=== PATIENT | female | born 1970 | race Caucasian/White ===

== ENCOUNTER 2016-12-09 09:43 | Emergency (ER) | payer BC ==
[~2016-12-09] VITALS: Ht 182.9 cm; Wt 163.3 kg
[~2016-12-09 09:43] MED LIST: ASPI81TA28 PO; DROS3TAB PO; HYG25 PO; METO25TA56 PO; SYN200 PO
[2016-12-09 09:45] VITALS: TEMP 36.9; Ht 182.9 cm; Wt 163.3 kg
[2016-12-09 10:06] VITALS: O2SAT 98
--- NOTE | 2016-12-09 10:16 | EMERGENCY ROOM VISIT NOTE ---
History Report prepared by Kristin: Aisha Briceño Under the Supervision of: Dr. Shelley Paz D.O. First contact with patient: 09:57 Chief Complaint: CHEST PAIN Stated Complaint: CHEST DISCOMFORT History of Present Illness The patient is a 46 year old female who presents to the Emergency Room with complaints of constant left sided chest discomfort beginning this morning. The patient states that she has a history of atrial fibrillation and notes that she was seen here in 2012 for a-fib and low potassium. She reports that she has a history of chest discomfort and palpitations that comes when she is getting close to her period. She notes that 3 days ago she woke up in the middle of the night from palpitations but her pulse was normal in the 70s. The patient reports that she called her balance engineer but has not heard anything back form them. She notes that today her pain was more pronounced than usual behind her nipple and is worsened with taking a deep breath. The patient complains of dizziness and worsening acid reflux recently that feels different from her current pain. She denies any breast changes, nausea, shortness of breath, and injury. The patient states that she had a mammogram recently that was normal. She notes that she is building a house and is getting less sleep than usual. She states that she is on Metoprolol, Synthroid, and control. Source of History: patient Onset: this morning Position: chest (left) Quality: other (discomfort) Timing: constant Modifying Factors (Worsening): breathing Associated Symptoms: No SOB, No nausea Note: Pt complains of dizziness and worsening acid reflux. She denies any breast changes, injury. Review of Systems See HPI for pertinent positives & negatives. A total of 10 systems reviewed and were otherwise negative. Past Medical & Surgical Medical Problems: (1) Cholecystectomy (2) Hypothyroidism Family History FH: gallbladder disease FH: lung disease FHx: cancer FHx: heart disease Hypertension Kidney disease Kidney stones Social History Smoking Status: Former Smoker Marital Status: Housing Status: lives with family Occupation Status: employed Current/Historical Medications Scheduled Chlorthalidone (Chlorthalidone), 25 MG PO DAILY Drospirenone-Ethinyl Estradiol (Ocella), 1 TAB PO DAILY Levothyroxine Sodium (Levothyroxine Sodium), 200 MCG PO DAILY Metoprolol Tartrate (Lopressor) (Lopressor), 12.5 MG PO BID Scheduled PRN Acetaminophen (Tylenol), 1,000 MG PO DAILY PRN for Pain or Fever Ibuprofen (Advil), 600 MG PO DAILY PRN for Pain Allergies Coded Allergies: Cephalexin (Unverified Allergy, Severe, hives, 12/09/16) Prednisone (Unverified Adverse Reaction, Mild, UNK, 12/09/16) Physical Exam Vital Signs Date Time Temp Pulse Resp B/P (MAP) Pulse Ox O2 Delivery O2 Flow Rate FiO2 12/09/16 15:45 76 15 127/60 96 12/09/16 14:37 67 12/09/16 14:30 64 20 139/84 94 Room Air 12/09/16 13:03 68 17 139/70 95 Room Air 12/09/16 12:06 66 18 157/94 96 Room Air 12/09/16 11:31 66 17 141/67 95 Room Air 12/09/16 10:50 66 14 146/68 95 Room Air 12/09/16 10:06 98 Room Air 12/09/16 10:03 74 12/09/16 09:45 36.9 79 16 151/87 97 Room Air Physical Exam GENERAL: alert, well appearing, well nourished, no distress, non-toxic EYE EXAM: normal conjunctiva, PERRL and EOM's grossly intact OROPHARYNX: no exudate, no erythema, lips, buccal mucosa, and tongue normal and mucous membranes are moist NECK: supple, no nuchal rigidity, no adenopathy, non-tender LUNGS: Clear to auscultation. Normal chest wall mechanics HEART: no murmurs, S1 normal and S2 normal ABDOMEN: abdomen soft, non-tender, normo-active bowel sounds, no masses, no rebound or guarding. BACK: Back is symmetrical on inspection and there is no deformity, no midline tenderness, no CVA tenderness. SKIN: no rashes and no bruising UPPER EXTREMITIES: upper extremities are grossly normal. LOWER EXTREMITIES: No pitting edema. NEURO EXAM: Normal sensorium, cranial nerves II-XII grossly intact, normal speech, no gross weakness of arms, no gross weakness of legs. Medical Decision & Procedures ER Provider Diagnostic Interpretation: Radiology results have been interpreted by the radiologist and reviewed by me. CHEST ONE VIEW PORTABLE FINDINGS: Prominence of the cardiac silhouette possibly due to portable AP technique. Lungs and pleural spaces clear. Osseous structures normal. Upper abdomen normal. IMPRESSION: 1. No acute cardiopulmonary disease. Electronically signed by: Lamin Christianson M.D. 12/09/2016 10:41 AM Dictated Date/Time: 12/09/2016 10:41 AM Laboratory Results 12/09/16 10:30 Red Blood Count 4.22, Mean Corpuscular Volume 89.3, Mean Corpuscular Hemoglobin 28.9, Mean Corpuscular Hemoglobin Concent 32.4, Mean Platelet Volume 9.0, Neutrophils (%) (Auto) 80.2, Lymphocytes (%) (Auto) 12.7, Monocytes (%) (Auto) 4.0, Eosinophils (%) (Auto) 2.3, Basophils (%) (Auto) 0.6, Neutrophils # (Auto) 6.67, Lymphocytes # (Auto) 1.06, Monocytes # (Auto) 0.33, Eosinophils # (Auto) 0.19, Basophils # (Auto) 0.05 12/09/16 10:30 Test 12/09/16 10:30 12/09/16 14:43 White Blood Count 8.32 K/uL (4.8-10.8) Red Blood Count 4.22 M/uL (4.2-5.4) Hemoglobin 12.2 g/dL (12.0-16.0) Hematocrit 37.7 % (37-47) Mean Corpuscular Volume 89.3 fL (80-100) Mean Corpuscular Hemoglobin 28.9 pg (25-34) Mean Corpuscular Hemoglobin Concent 32.4 g/dl (32-36) Platelet Count 414 K/uL (130-400) Mean Platelet Volume 9.0 fL (7.4-10.4) Neutrophils (%) (Auto) 80.2 % Lymphocytes (%) (Auto) 12.7 % Monocytes (%) (Auto) 4.0 % Eosinophils (%) (Auto) 2.3 % Basophils (%) (Auto) 0.6 % Neutrophils # (Auto) 6.67 K/uL (1.4-6.5) Lymphocytes # (Auto) 1.06 K/uL (1.2-3.4) Monocytes # (Auto) 0.33 K/uL (0.11-0.59) Eosinophils # (Auto) 0.19 K/uL (0-0.5) Basophils # (Auto) 0.05 K/uL (0-0.2) RDW Standard Deviation 44.2 fL (36.4-46.3) RDW Coefficient of Variation 13.5 % (11.5-14.5) Immature Granulocyte % (Auto) 0.2 % Immature Granulocyte # (Auto) 0.02 K/uL (0.00-0.02) Prothrombin Time 10.5 SECONDS (9.0-12.0) Prothromb Time International Ratio 1.0 (0.9-1.1) D-Dimer 420 ug/L FEU (0-500) Anion Gap 8.0 mmol/L (3-11) Est Creatinine Clear Calc Drug Dose 149.3 ml/min Estimated GFR () 100.2 Estimated GFR (Non- 86.4 BUN/Creatinine Ratio 12.0 (10-20) Calcium Level 8.8 mg/dl (8.5-10.1) Magnesium Level 2.0 mg/dl (1.8-2.4) Total Bilirubin 0.3 mg/dl (0.2-1) Aspartate Amino Transf (AST/SGOT) 18 U/L (15-37) Alanine Aminotransferase (ALT/SGPT) 22 U/L (12-78) Alkaline Phosphatase 121 U/L (45-117) Pro-B-Type Natriuretic Peptide 225 pg/ml (0-450) Total Protein 7.1 gm/dl (6.4-8.2) Albumin 3.1 gm/dl (3.4-5.0) Globulin 4.0 gm/dl (2.5-4.0) Albumin/Globulin Ratio 0.8 (0.9-2) Thyroid Stimulating Hormone (TSH) 5.300 uIu/ml (0.300-4.500) Troponin I < 0.015 ng/ml (0-0.045) Laboratory results per my review. Medications Administered Medications (Trade) Dose Ordered Sig/Joyce Route Start Time Stop Time Status Last Admin Dose Admin Ketorolac Tromethamine (Toradol Inj) 30 mg NOW STAT IV 12/09/16 11:43 12/09/16 11:44 DC 12/09/16 12:03 30 MG ECG Indication: chest pain Rate (beats per minute): 85 Rhythm: sinus rhythm Findings: 1st degree AV block, T-wave inversion (AVL and V2), no ectopy, other (normal intervals) ED Course 0957: The patient was evaluated in room C6. A complete history and physical exam was performed. 1140: I reevaluated and updated the patient. 1143: Toradol Inj 30mg IV. 1523: Upon reevaluation, the patient is feeling better. I discussed the findings and the treatment plan with the patient. She verbalizes agreement and understanding. The patient was discharged home. Medical Decision Differential diagnosis: Etiologies such as cardiac ischemia, aortic dissection, pulmonary embolism, pneumonia, pneumothorax, musculoskeletal, infections, pericarditis, myocarditis , esophageal rupture, gastrointestinal, as well as others were entertained. HEART score 2 Pt well appearing here. Pain seems to occur frequently around her cycle, however today slightly worse. Different from prior GERD. Pt intermittently gets palpitations, no a.fib noted here. Trop neg x 2. Second trop >8 hrs from onset of pain. Doubt PE, doubt vascular etiology, no evidence of infectious etiology. VS stable here. Pain improved here. Advised close f/u with pcp and cards, discussed sx to watch/return for, she verbalized understanding and was agreeable with plan. Medication Reconcilliation Current Medication List: was personally reviewed by me Blood Pressure Screening Patient's blood pressure: Elevated blood pressure Blood pressure disposition: Elevated BP felt to be situational Impression Primary Impression: Chest pain Additional Impression: Palpitations Scribe Attestation The scribe's documentation has been prepared under my direction and personally reviewed by me in its entirety. I confirm that the note above accurately reflects all work, treatment, procedures, and medical decision making performed by me. Departure Information Dispostion Home / Self-Care Referrals Yeny Devries (PCP) Patient Instructions [facility] Additional Instructions Please continue regular medications as prescribed. Please follow up with your family doctor regarding your thyroid dysfunction. Please follow up with your balance engineer also given recent palpitations episode of chest pain that she had. Please avoid any stress activity or heavy lifting until you're otherwise seen and evaluated. You may eat and drink regularly. Please avoid any acidic foods which could contribute to your reflux. If you have any worsening pain, develop trouble breathing, dizziness, passing out, vomiting, or any other new concerns, please return the emergency room. Problem Qualifiers Primary Impression: Chest pain Chest pain type: unspecified Qualified Codes: R07.9 - Chest pain, unspecified
--- NOTE | 2016-12-09 10:43 | DIAGNOSTIC IMAGING REPORT ---
CHEST ONE VIEW PORTABLE CLINICAL HISTORY: 46 years-old Female presenting with chest pain. TECHNIQUE: Portable upright AP view of the chest was obtained. COMPARISON: 07/23/2013. FINDINGS: Prominence of the cardiac silhouette possibly due to portable AP technique. Lungs and pleural spaces clear. Osseous structures normal. Upper abdomen normal. IMPRESSION: 1. No acute cardiopulmonary disease. Electronically signed by: Lamin Christianson M.D. 12/09/2016 10:41 AM Dictated Date/Time: 12/09/2016 10:41 AM
[2016-12-09 10:47] LABS: BASO % 0.6 %; BASO ABS # 0.05 K/uL (0-0.2); COMPLETE YES; EOS % 2.3 %; HEMATOCRIT 37.7 % (37-47); IG% 0.2 %; LYMPH % 12.7 %; LYMPH ABS # 1.06 K/uL (1.2-3.4); MEAN CELL VOLUME 89.3 fL (80-100); MEAN CORPUSCULAR HEMOGLOBIN 28.9 pg (25-34); MEAN CORPUSCULAR HGB CONC 32.4 g/dl (32-36); NEUT % 80.2 %; PLATELET COUNT 414 K/uL (130-400); RED BLOOD COUNT 4.22 M/uL (4.2-5.4); WHITE BLOOD COUNT 8.32 K/uL (4.8-10.8)
[2016-12-09 11:02] LABS: ALT/SGPT 22 U/L (12-78); BLOOD UREA NITROGEN 10 mg/dl (7-18); CALCIUM 8.8 mg/dl (8.5-10.1); CARBON DIOXIDE 26 mmol/L (21-32); CHLORIDE 105 mmol/L (98-107); CREATININE 0.82 mg/dl (0.60-1.20); GLUCOSE 104 mg/dl (70-99); POTASSIUM 3.6 mmol/L (3.5-5.1); SODIUM 139 mmol/L (136-145)
[2016-12-09] MEDS ORDERED: TYLOTC500 PO (11:12)
[2016-12-09 11:13] LABS: ALB/GLOB RATIO 0.8 (0.9-2); ALKALINE PHOSPHATASE 121 U/L (45-117); AST/SGOT 18 U/L (15-37)
[2016-12-09] MEDS ORDERED: IBUP-1050 PO (11:13)
[2016-12-09 11:14] LABS: PROTHROMBIN TIME (PATIENT) 10.5 SECONDS (9.0-12.0)
[2016-12-09] MEDS ORDERED: LEVO200T6 PO (11:17)
[2016-12-09] MEDS ORDERED: KETOROLAC TROMETHAMINE 30 MG/ML VIAL IV STA (11:43)
[2016-12-09 15:45] VITALS: BP 127/60; PULSE 76; O2SAT 96
== END 2016-12-09 15:45 | disposition home or self-care (01) ==
LOC: C.EDB 09:44 → C.EDC 15:45
DX: R07.9 Chest pain, unspecified (principal); R00.2 Palpitations; E03.9 Hypothyroidism, unspecified; Z83.79 Family history of other diseases of the digestive system; Z83.6 Family history of other diseases of the respiratory system; Z80.9 Family history of malignant neoplasm, unspecified; Z82.49 Family history of ischemic heart disease and other diseases of the circulatory system; Z84.1 Family history of disorders of kidney and ureter; Z87.891 Personal history of nicotine dependence; Z79.899 Other long term (current) drug therapy